=== PATIENT | female | born 1980 | race Caucasian/White ===

== ENCOUNTER → 2019-09-17 | Outpatient (CLI) | payer SELFPAY ==
[~2019-09-17] MED LIST: NO HOME MEDICATIONS; PERCOCET 325 MG1 TA2 PO; PRENATAL1 TA1 PO; SLOW FE45 MG PO
== END ==
LOC: COL.RAD 12:49
DX: R10.9 Unspecified abdominal pain (principal); Z97.5 Presence of (intrauterine) contraceptive device
CPT/HCPCS: Q9967

== ENCOUNTER → 2023-01-19 | Outpatient (CLI) | payer BC | LOC: MC.RAD 06:47 | DX: R92.0 Mammographic microcalcification found on diagnostic imaging of breast (principal) ==